=== PATIENT | female | born 1930 | race Caucasian/White ===

== ENCOUNTER 2018-03-13 09:52 | Emergency (ER) | payer MEDICARE, BC ==
[~2018-03-13] VITALS: Ht 154.9 cm; Wt 63.5 kg
[~2018-03-13 09:52] MED LIST: ADULT LOW DOSE81 MG PO; AMITRIPTYLINE H10 M1 PO; AUGMENTIN 875-1 EACH PO; CALCIUM 600 +1 EAC1 PO; CIPRO250 M1 PO; DIGESTIVE ENZY1 EAC2 PO; EXCEDRIN CAPLE1 EACH PO; EXCEDRIN SINUS1 EAC2 PO; FOSAMAX 70 MG T70 MG PO; GLUCOSAMINE S1000 M2 PO; MULTI-SYMPTOM1 EAC3 PO; MULTIVITAMIN; MULTIVITAMINS PO; OMEGA-31000 MG PO; PHENERGAN 25 MG25 M1 PO; PREDNISONE 5 MG5 M1 PO; PYRIDOSTIGMINE60 M2 PO; ZYRTEC
[2018-03-13] MEDS ORDERED: CIPRO500 MG PO (10:05)
[2018-03-13 10:40] LABS: ABSOLUTE EOSINOPHILS 0.1 thou/uL (0.0-0.7); ABSOLUTE LYMPHOCYTES 0.8 thou/uL (0.8-5.3); ABSOLUTE MONOCYTES 0.4 thou/uL (0.0-1.2); ABSOLUTE NEUTROPHILS 1.7 thou/uL (1.6-8.1); BASOPHILS 0.4 %; EOSINOPHILS 1.9 %; HEMOGLOBIN 13.6 gm/dL (12.0-15.0); LYMPHOCYTES 26.7 %; MCHC 33.1 g/dL (28.0-37.0); MCV 84.5 fL (80.0-100.0); MONOCYTES 14.5 %; MPV 7.3 fl. (7.2-11.1); NUCLEATED RBCS 0 /100WBC; PLATELET COUNT* 198 thou/uL (150-400); POLYS 56.5 %; RBC 4.85 mil/uL (4.20-5.00); RDW-CV 13.6 % (10.5-14.5); WBC 2.9 thou/uL (4.0-11.0)
[2018-03-13 10:46] LABS: CALCIUM 8.6 mg/dL (8.5-10.1); CREATININE 0.8 mg/dL (0.6-1.3); POTASSIUM 4.2 mmol/L (3.5-5.1)
[2018-03-13 11:10] VITALS: BP 174/99
[2018-07-04] MEDS ORDERED: MULTI VITAMIN1 EACH PO (14:38)
[2018-07-04] MEDS ORDERED: FISH OIL 1,001000 M2 PO (14:38)
[2018-07-04] MEDS ORDERED: FLAX SEED OIL1 EACH PO (14:39)
[2018-07-04] MEDS ORDERED: FOLBIC RF TABL1 EACH PO (14:41)
[2018-07-04] MEDS ORDERED: BIOTIN5000 MC1 PO (14:42)
== END 2018-03-13 11:15 | disposition home or self-care (01) ==
LOC: M.ERS 09:52
PROVIDERS: Nurse Practitioner Family
DX: R21 Rash and other nonspecific skin eruption (principal); R60.0 Localized edema; T50.995A Adverse effect of other drugs, medicaments and biological substances, initial encounter; G43.909 Migraine, unspecified, not intractable, without status migrainosus; Z96.652 Presence of left artificial knee joint; Z90.49 Acquired absence of other specified parts of digestive tract; Z85.828 Personal history of other malignant neoplasm of skin; Z88.8 Allergy status to other drugs, medicaments and biological substances; Y92.89 Other specified places as the place of occurrence of the external cause

== ENCOUNTER → 2018-05-30 | Outpatient (CLI) | payer MEDICARE, BC ==
[~2018-05-30] MED LIST changes: +BIOTIN5000 MC1 PO; +CIPRO500 MG PO; +FISH OIL 1,001000 M2 PO; +FLAX SEED OIL1 EACH PO; +FOLBIC RF TABL1 EACH PO; +MULTI VITAMIN1 EACH PO
== END ==
LOC: M.RAD 05-16 11:56 → M.ULTRA 12:35 → M.RAD 13:30
DX: Z12.31 Encounter for screening mammogram for malignant neoplasm of breast (principal); M81.0 Age-related osteoporosis without current pathological fracture; I73.9 Peripheral vascular disease, unspecified; K44.9 Diaphragmatic hernia without obstruction or gangrene; K57.30 Diverticulosis of large intestine without perforation or abscess without bleeding; I74.3 Embolism and thrombosis of arteries of the lower extremities; M85.80 Other specified disorders of bone density and structure, unspecified site

== ENCOUNTER → 2018-07-04 | Outpatient (CLI) | payer MEDICARE, BC ==
[~2018-07-04] VITALS: Ht 152.4 cm; Wt 61.2 kg
[2018-07-04 14:23] VITALS: BP 153/75
== END ==
LOC: M.INT 14:00
DX: I99.8 Other disorder of circulatory system (principal); G43.909 Migraine, unspecified, not intractable, without status migrainosus; M85.89 Other specified disorders of bone density and structure, multiple sites; Z87.891 Personal history of nicotine dependence